=== PATIENT | female | born 1980 | race Caucasian/White ===

== ENCOUNTER 2020-03-04 16:12 | Emergency (ER) | payer OTHER, BC, SELFPAY ==
[2020-03-04 16:31] VITALS: BP 134/101; PULSE 99; RESP 18; TEMP 37.4; O2SAT 97
--- NOTE | 2020-03-04 16:44 | ED.BACK ---
HPI - Back Pain/Injury General Chief Complaint: Back Pain/Injury Stated Complaint: lower back pain Time Seen by Provider: 03/04/20 16:32 Source: patient and RN notes reviewed Mode of arrival: ambulatory Limitations: no limitations History of Present Illness HPI Narrative: Patient presents today complaining of right lower back pain. She injured it while working at [employer] this afternoon. She was pulling a pallet chirag out from underneath a pallet and felt a sudden shooting pain in her back. Denies radiation of the pain. Denies any numbness or tingling in the extremities. Denies any loss of bowel or bladder control. Currently rates her pain 8/10 and tried ice and ibuprofen without relief. MD elicited complaint: back pain Related Data Home Medications Medication Instructions Recorded Confirmed No Home Medications 03/04/20 03/04/20 Allergies Allergy/AdvReac Type Severity Reaction Status Date / Time No Known Allergies Allergy Unknown Verified 05/29/16 12:12 Review of Systems Review of Systems: Narrative: CONSTITUTIONAL: Denies body aches, fever, chills, or sweats. EYES: Denies visual changes, redness, or discharge. ENT: Denies rhinorrhea, congestion, sore throat, or otalgia. CARDIOVASCULAR: Denies chest pain, palpitations, or edema. RESPIRATORY: Denies cough or dyspnea. GASTROINTESTINAL: Denies abdominal pain, nausea, vomiting, or diarrhea. GENITOURINARY: Denies dysuria or hematuria. SKIN: Denies rash, itching, or wounds. MUSCULOSKELETAL: Denies joint pain, or myalgia. + Low back pain NEUROLOGIC: Denies headache, numbness, tingling, or weakness. PSYCH: Denies depression or anxiety. PMFSH Social History Social History Gender identity (if verbalized by the patient): Female Comments At time of signature, I have reviewed and agree with nursing past medical, surgical, social and family history unless otherwise noted. Please see nursing chart for further information. There is no relevant family history pertinent to the presenting complaint Exam Narrative: Exam Narrative: GENERAL: Well-appearing, well-nourished, and in no acute distress.+ Mild pain distress. HEAD: Normocephalic, atraumatic. EYES: EOMI. No redness or drainage. Conjunctivae normal. ENT: Mucous membranes pink and moist. NECK: Normal AROM. Supple. No lymphadenopathy. CHEST: No respiratory distress. MUSCULOSKELETAL: No bony tenderness of the thoracic or lumbar spine. Right lower lumbar paraspinal muscle tenderness. No SI joint tenderness bilaterally. Distal sensation and saddle sensation intact. Capillary refill normal. Posterior tibial pulses normal. Foot push and pulls equal and strong. EXTREMITIES: Normal range of motion. No edema. SKIN: Warm, dry, no rash. Capillary refill normal. Normal skin turgor. NEURO: No focal deficits. Alert and oriented x3. Gait steady. PSYCH: Normal affect. No signs of depression or anxiety. Course Vital Signs Vital signs: Vital Signs Temperature 99.3 F 03/04/20 16:31 Pulse Rate 99 03/04/20 16:31 Respiratory Rate 18 03/04/20 16:31 Blood Pressure 134/101 H 03/04/20 16:31 Pulse Oximetry 97 03/04/20 16:31 Temperature 99.3 F 03/04/20 16:31 Pulse Rate 99 03/04/20 16:31 Respiratory Rate 18 03/04/20 16:31 Blood Pressure 134/101 H 03/04/20 16:31 Pulse Oximetry 97 03/04/20 16:31 Reviewed. Pt has been instructed to follow up with her PCP regarding her elevated blood pressure today. MDM - Back Pain/Injury Differential Diagnosis Differential diagnosis: Likely lumbar radiculopathy, sciatica, strain of lumbar region and other (Bulging disc) Critical Care Time Critical Care Time Critical Care Time: No Discharge Plan Discharge Clinical Impression: Strain of lumbar region Qualifiers: Encounter type: initial encounter Qualified Code(s): S39.012A - Strain of muscle, fascia and tendon of lower back, initial encounter Patient Disposition: Home, Self-Care Condition: Sta
== END 2020-03-04 16:50 | disposition home or self-care (01) ==
PROVIDERS: Emergency Provider Nurse Practitioner
DX: S39.012A Strain of muscle, fascia and tendon of lower back, initial encounter (principal); X50.0XXA Overexertion from strenuous movement or load, initial encounter; Y99.0 Civilian activity done for income or pay
CPT/HCPCS: 99213; G0463

== ENCOUNTER 2021-07-15 07:39 | Emergency (ER) | payer BC, SELFPAY ==
[2021-07-15 07:45] VITALS: BP 114/92; PULSE 100; RESP 16; TEMP 36.4; O2SAT 98
--- NOTE | 2021-07-15 09:17 | ED.GENADULT ---
HPI - General Adult General Chief complaint: Back Pain/Injury Stated complaint: Low Back Pain Time Seen by Provider: 07/15/21 09:06 Source: RN notes reviewed Mode of arrival: ambulatory Limitations: other (patient mood) History of Present Illness HPI narrative: Patient is a 40-year-old female presented with chief complaint of low back pain that began when she bent over to put on her underwear. Patient denies and or saddle paresthesias or loss of bowel or bladder function. Patient reported to nurse radiculopathy. Related Data Home Medications Medication Instructions Recorded Confirmed No Home Medications 03/04/20 03/04/20 Allergies Allergy/AdvReac Type Severity Reaction Status Date / Time No Known Allergies Allergy Unknown Verified 07/15/21 07:58 Review of Systems Review of Systems: CONSTITUTIONAL: Denies fever, chills, or sweats. EYES: Denies visual changes, redness, or discharge. ENT: Denies rhinorrhea, congestion, sore throat, or otalgia. CARDIOVASCULAR: Denies chest pain, palpitations, or edema. RESPIRATORY: Denies cough or dyspnea. GASTROINTESTINAL: Denies abdominal pain, nausea, vomiting, or diarrhea. GENITOURINARY: Denies dysuria or hematuria. SKIN: Denies rash or itching. MUSCULOSKELETAL: Reports back pain, denies joint pain, or myalgia. NEUROLOGIC: Denies headache, numbness, dizziness, or weakness. PSYCHIATRIC: Denies anxiety or depression. PMFSH Social History Social History Gender identity (if verbalized by the patient): Female Exam Narrative: GENERAL: Well-appearing, well-nourished. Patient tearful and yelling at me upon entrance to the room. HEAD: Normocephalic, atraumatic. EYES: PERRLA and EOMI. CHEST:No respiratory distress. No tachypnea. Speaking without difficulty. NEURO: No focal deficits. Alert and oriented x3. Patient ambulates with limping gait. PSYCH: Angry in temperament, yelling. Course Vital Signs Vital signs: Vital Signs Temperature 97.5 F L 07/15/21 07:45 Pulse Rate 100 07/15/21 07:45 Respiratory Rate 16 07/15/21 07:45 Blood Pressure 114/92 H 07/15/21 07:45 Pulse Oximetry 98 07/15/21 07:45 Temperature 97.5 F L 07/15/21 07:45 Pulse Rate 100 07/15/21 07:45 Respiratory Rate 16 07/15/21 07:45 Blood Pressure 114/92 H 07/15/21 07:45 Pulse Oximetry 98 07/15/21 07:45 Medical Decision Making MDM Narrative Medical decision making narrative: Was unable to perform a physical evaluation of patient's back or further neurological exam. Unable to perform any measures to further evaluate her complaint. I went into the room to evaluate patient and apologized for her wait time as my shift is started but she has been waiting for over an hour. I told her that Dr Diaz had been working alone until I got here. The patient began yelling at me that she was leaving and was going to be seen somewhere else. I reiterated the aforementioned and told her that I was the provider taking care of her and could perform exam, order imaging, medications or whatever may be needed to help make her more comfortable. The patient then proceeded to continue yelling at me stating they should've told her about the wait time beforehand and she no longer wants to be seen. She snatched the curtain closed in front of me and told me to get out and let her get dressed and she was leaving. Vital Signs Vital Signs: Vital Signs Temperature 97.5 F L 07/15/21 07:45 Pulse Rate 100 07/15/21 07:45 Respiratory Rate 16 07/15/21 07:45 Blood Pressure 114/92 H 07/15/21 07:45 Pulse Oximetry 98 07/15/21 07:45 Temperature 97.5 F L 07/15/21 07:45 Pulse Rate 100 07/15/21 07:45 Respiratory Rate 16 07/15/21 07:45 Blood Pressure 114/92 H 07/15/21 07:45 Pulse Oximetry 98 07/15/21 07:45 Discharge Plan Discharge Clinical Impression: Lumbar back pain Patient Disposition: Elopement After Seen by Prov Condition: Guarded Prognosis Prescriptions: No Action No Home
--- NOTE | 2021-07-15 09:18 | PC.NURSE ---
Patient was waiting to be seen by provider and was in room. Patient was triaged and waiting in room. Provider arrived and went to see patient, and then opted to walk out before receiving treatment from the provider. Nothing further to report.
== END 2021-07-15 09:20 | disposition left against medical advice (07) ==
PROVIDERS: Emergency Provider Emergency Medicine
DX: M54.50 Low back pain, unspecified (principal)
CPT/HCPCS: 99281

== ENCOUNTER 2021-07-15 09:40 | Emergency (ER) | payer BC, SELFPAY ==
[2021-07-15 09:49] VITALS: BP 132/95; PULSE 95; RESP 16; TEMP 37.4; O2SAT 99
--- NOTE | 2021-07-15 10:07 | ED.BACK ---
HPI - Back Pain/Injury General Chief Complaint: Back Pain/Injury Stated Complaint: lower back pain Time Seen by Provider: 07/15/21 10:25 Source: patient and RN notes reviewed Mode of arrival: ambulatory Limitations: no limitations History of Present Illness HPI Narrative: 40-year-old female presents with concern for right low back pain that radiates to the right buttock and down the right leg. She reports on Wednesday she was bending over to get dressed when she felt a sudden pain in her back. Reports since then she has been using ibuprofen with no relief. She reports position changes make the pain worse. Reports difficulty finding a position of comfort. She denies loss of bowel or bladder function, perianal anesthesia, fever, abdominal pain, mid spinal tenderness. She denies injury or trauma. MD elicited complaint: back pain Related Data Allergies Allergy/AdvReac Type Severity Reaction Status Date / Time No Known Allergies Allergy Unknown Verified 07/15/21 10:27 Review of Systems Review of Systems: CONSTITUTIONAL: Denies malaise, chills, sweats, or fever. CARDIOVASCULAR: Denies chest pain, palpitations, or edema. RESPIRATORY: Denies cough or dyspnea. GASTROINTESTINAL: Denies abdominal pain, nausea, vomiting, diarrhea, bloody, or mucous stools. GENITOURINARY: Denies dysuria or hematuria. SKIN: Denies rash or itching. MUSCULOSKELETAL: Reports right lobe back pain. Denies myalgia. NEUROLOGIC: Denies numbness, weakness, or headache. All systems reviewed & are unremarkable except as noted in HPI and below PMFSH Social History Social History Gender identity (if verbalized by the patient): Female Comments At time of signature, agree with nursing past medical, surgical, social and family history. There is no relevant family history pertinent to the presenting complaint Exam Narrative: GENERAL: Well-appearing, well-nourished, and in no acute distress. HEAD: Normocephalic, atraumatic. EYES: PERRLA and EOMI. NECK: Supple. No lymphadenopathy. CHEST: Clear to auscultation. No respiratory distress. HEART: Regular rate and rhythm. Distal pulses palpable and equal, cap refill <3 seconds MUSCULOSKELETAL: Limited range of motion in the right leg due to pain, otherwise normal range of motion and strength in other extremities; 5/5 strength with hip flexion and extension, dorsiflexion and extension, knee flexion and extension, plantar flexion and extension. Normal sensation in dermatomal distributions with sensitivity to light touch and pain. No midline back tenderness to palpation. No paraspinal tenderness. Transfers from lying to sitting to standing. SKIN: Warm, dry, no rash. No ecchymosis, erythema, open wounds to back. NEURO: No focal deficits. Alert and oriented x3. PSYCH: Normal mood and affect Course Course Emergency Course: Patient is aware of diagnosis, understands and agrees to treatment plan. Anticipatory guidance given. Patient agrees to follow-up as directed and is aware of reasons to seek care at the emergency department. Portions of this record may have been created with voice recognition software Vital Signs Vital signs: Vital Signs Temperature 99.4 F 07/15/21 09:49 Pulse Rate 95 07/15/21 09:49 Respiratory Rate 16 07/15/21 09:49 Blood Pressure 132/95 H 07/15/21 09:49 Pulse Oximetry 99 07/15/21 09:49 Temperature 99.4 F 07/15/21 09:49 Pulse Rate 95 07/15/21 09:49 Respiratory Rate 16 07/15/21 09:49 Blood Pressure 132/95 H 07/15/21 09:49 Pulse Oximetry 99 07/15/21 09:49 Reviewed. MDM - Back Pain/Injury MDM Narrative Medical decision making narrative: No risk factors or findings concerning for epidural abscess, diskitis, vertebral osteomyelitis, cord compression, cauda equina, vertebral fracture or bone malignancy, AAA, or pyelonephritis. Patient instructed to consider further imaging and workup through their primary care physician as an outpatient if symptoms persist. Differentia
[2021-07-15] MEDS: KETOROLAC (*BKC) 60 MG/2 ML VIAL IM (10:50)
== END 2021-07-15 10:55 | disposition home or self-care (01) ==
PROVIDERS: Emergency Provider Nurse Practitioner
DX: M54.50 Low back pain, unspecified (principal)
CPT/HCPCS: 96372; 99213; G0463; J1885

== ENCOUNTER → 2022-09-23 07:36 | Outpatient (CLI) | payer BC, SELFPAY ==
--- NOTE | ~2022-09-23 | US_ITS ---
Limited Abdominal Sonogram: Real-time sonographic imaging of the right upper quadrant was performed. Clinical History: Right upper quadrant pain Findings: The liver appears mildly echogenic, with no evidence of mass lesion or bile duct dilatatio n. Main portal vein demonstrates normal direction of flow. The gallbladder is well distended, and basilio ears normal with no evidence of gallstone or wall thickening. The common bile duct measures 3 mm. Th e visualized pancreas, aorta, and IVC are unremarkable. Right kidney measures 10.4 cm in length, with out evidence for hydronephrosis. Impression: Probable diffuse fatty infiltration of the liver. Reviewed, dictated and finalized at location M. DESIGNER Impression: Probable diffuse fatty infiltration of the liver.
== END ==
PROVIDERS: PCP Registered Nurse; Visit Provider Registered Nurse
DX: R10.11 Right upper quadrant pain (principal); K76.0 Fatty (change of) liver, not elsewhere classified
CPT/HCPCS: 76705

== ENCOUNTER 2022-10-09 07:24 | Outpatient (CLI) | payer BC, SELFPAY ==
--- NOTE | ~2022-10-09 | NM_ITS ---
EXAMINATION: NM hepatobiliary wo pharm DATE: 10/09/2022 10:38 FRINGE KNOTTER INDICATION: Right upper quadrant pain COMPARISON: None. TECHNIQUE: 5.1 mCi Tc-99m mebrofenin (Choletec) was administered intravenously. Scintigraphic images of the abdomen were obtained for one hour. At the 1 hour time point, the patient drank 8 oz Ensure, and imaging was continued for 60 minutes. Gallbladder ejection fraction was calculated by the technol ogist. FINDINGS: There is normal clearance of radiotracer from the blood pool. There is homogeneous tracer u ptake by the liver. Activity progresses to the bowel and gallbladder. The gallbladder ejection fract ion is 33%. Note that with this technique, normal GBEF >= 33%. IMPRESSION: 1. Normal hepatobiliary scan. Reviewed, dictated and finalized at location B. GE KNOTTER
== END 2022-10-09 07:25 | disposition home or self-care (01) ==
PROVIDERS: PCP Registered Nurse; Visit Provider Registered Nurse
DX: R10.11 Right upper quadrant pain (principal)
CPT/HCPCS: 78226; A9537

== ENCOUNTER 2023-09-20 15:16 | Emergency (ER) | payer BC, SELFPAY ==
[2023-09-20 15:38] VITALS: BP 130/81; PULSE 83; RESP 16; TEMP 36.9; O2SAT 98
--- NOTE | 2023-09-20 15:55 | ED.URI ---
HPI - URI/Sore Throat General Chief Complaint: Upper Respiratory Infection Stated Complaint: left side of face hurts,sore throat Time Seen by Provider: 09/20/23 15:55 Source: patient Mode of arrival: ambulatory Limitations: no limitations History of Present Illness HPI Narrative: 43-year-old female presents with complaint of , sinus pressure, sore throat, left ear pain, fatigue for 2-3 days. Afebrile. States when she woke up this morning had felt very full. Not taking any [id number] medications to treat her symptoms. All systems reviewed and negative except as noted above. Related Data Allergies Allergy/AdvReac Type Severity Reaction Status Date / Time No Known Allergies Allergy Unknown Verified 09/20/23 15:42 Review of Systems Review of Systems: CONSTITUTIONAL: Denies fever, chills, or sweats. EYES: Denies visual changes, redness, or discharge. ENT: Reports rhinorrhea, congestion, sore throat, left ear pain. CARDIOVASCULAR: Denies chest pain, palpitations, or edema. RESPIRATORY: Denies cough or dyspnea. GASTROINTESTINAL: Denies abdominal pain, nausea, vomiting, or diarrhea. GENITOURINARY: Denies dysuria or hematuria. SKIN: Denies rash or itching. MUSCULOSKELETAL: Denies back pain, joint pain, or myalgia. NEUROLOGIC: Denies headache, numbness, or weakness. PSYCHIATRIC: Denies anxiety or depression. All other systems reviewed are negative, except as documented in HPI. PMFSH Social History Social History Gender identity (if verbalized by the patient): Female Comments At time of signature, agree with nursing past medical, surgical, social and family history. There is no relevant family history pertinent to the presenting complaint. Exam Narrative: GENERAL: This is a well-nourished, well-developed patient, in no apparent distress. HEAD: normocephalic, atraumatic. EYES: PERRL. Sclera clear/white. Vision is grossly intact. EARS: External ears normal, auditory canals clear and without drainage, Fluid bilateral TMs, dull light reflex, mild erythema bilaterally without perforation.. Hearing grossly intact. NOSE: External nose normal with Mild congestion, erythema to bilateral nares. THROAT: Mucous membranes moist, posterior pharynx clear. NECK: Neck supple, non-tender without lymphadenopathy, masses or thyromegaly. CARDIOVASCULAR: Regular rate and rhythm without murmurs, gallops, or rubs. RESPIRATORY: Clear to auscultation. Breath sounds equal bilaterally. No wheezes, rales, or rhonchi. SKIN: warm, Dry, intact with no suspicious lesions or rash, good texture and turgor. NEURO: awake, alert, and oriented to person, place and time. There were no obvious focal neurologic abnormalities. EXTREMITIES: No joint tenderness, effusion, or edema noted. Course Course Level of Care: Express Care Visit Vital Signs Vital signs: Vital Signs Temperature 36.9 C 09/20/23 15:38 Pulse Rate 83 09/20/23 15:38 Respiratory Rate 16 09/20/23 15:38 Blood Pressure 130/81 09/20/23 15:38 Pulse Oximetry 98 09/20/23 15:38 Oxygen Delivery Room Air 09/20/23 15:38 Temperature 36.9 C 09/20/23 15:38 Pulse Rate 83 09/20/23 15:38 Respiratory Rate 16 09/20/23 15:38 Blood Pressure 130/81 09/20/23 15:38 Pulse Oximetry 98 09/20/23 15:38 Oxygen Delivery Room Air 09/20/23 15:38 Reviewed MDM - URI/Sore Throat MDM Narrative Medical decision making narrative: Patient is aware of diagnosis, understands and agrees to treatment plan. Anticipatory guidance given. Patient agrees to follow-up as directed and is aware of reasons to seek care at the emergency department. Portions of this record may have been created with voice recognition software Differential Diagnosis Differential diagnosis: Likely otitis media and sinusitis Lab Data Labs: Strep Screen Presumptive Negative *(Reference Range: Negative)* Discharge Joaquin
== END 2023-09-20 16:05 | disposition home or self-care (01) ==
PROVIDERS: Emergency Provider Nurse Practitioner Family; PCP Registered Nurse
DX: H65.03 Acute serous otitis media, bilateral (principal); J01.90 Acute sinusitis, unspecified
CPT/HCPCS: 87081; 87880; 99213; G0463

== ENCOUNTER 2024-07-13 16:22 | Emergency (ER) | payer BC, SELFPAY ==
--- NOTE | ~2024-07-13 | CT_ITS ---
CT abdomen pelvis w con Ordering provider: Prasanth Medrano MD History: 43 years Female with . RIGHT UPPER QUADRANT PAIN . Comparison: None. Technique: CT abdomen and pelvis with IV and without oral contrast. Automated exposure control and it erative reconstruction technique were employed. The dose-length product was 481.39 mGy-cm. 100 mL Omn ipaque 350 was given IV. Findings: VISUALIZED LOWER CHEST: Dependent atelectatic changes. UPPER ABDOMINAL ORGANS: Liver: Mild hepatomegaly. Gallbladder: Contracted. Spleen: Normal. Stomach/duodenum: Slightly thickened wall of the second and 3rd parts of the duodenum which may indic ate duodenitis.. Pancreas: Normal. Adrenals: Normal. Kidneys: Tiny hyperdense areas are seen in the left kidney which may be tiny stones or early contrast excretion. Follow-up advised. Tiny calcification focus is also seen in the right kidney. PELVIC ORGANS: The bladder is normal. Uterus: Normal. Tiny right ovarian cyst. BOWEL AND MESENTERY: Colon: No evidence of diverticulitis. Fecal material is loaded in the right side of the colon suggest taylor of constipation. Normal appendix. Small Bowel: Normal. No obstruction. Peritoneum/mesentery: No free air or free fluid. No mesenteric lymphadenopathy. RETROPERITONEUM: Normal aorta. No retroperitoneal lymphadenopathy. MUSCULOSKELETAL: Superficial soft tissues: The superficial soft tissues are normal. Bones: Age appropriate degenerative changes of the spine. IMPRESSION: 1. No evidence of appendicitis, diverticulitis or intestinal obstruction. 2. Possible duodenitis. 3. Constipation. 4. Mild hepatomegaly. Reviewed, dictated and finalized at location A. [facility] [employer]
[2024-07-13 16:23] VITALS: BP 151/86; PULSE 91; RESP 16; TEMP 36.6; O2SAT 98
--- NOTE | 2024-07-13 16:31 | ECG_ITS ---
Test Date: 2024-07-13 16:37:57 Measurements Intervals [place] Rate: 80 P: 39 ND: 145 QRS: 4 QRSD: 93 T: 47 QT: 383 QTc: 442 Interpretive Statements SINUS RHYTHM DELAYED PRECORDIAL R/S TRANSITION CONSIDER INFERIOR INFARCT, AGE INDETERMINATE BORDERLINE T WAVE ABNORMALITY- ANTERIOR LEADS ABNORMAL ECG No previous ECG available for comparison Electronically Signed On 07-13-2024 17:49:50 FRAME TENDER by Bennett Liu D.O.
[2024-07-13 16:47] LABS: Basophils Absolute Auto 0.1 K/mm3 (0.0-0.1); Basophils Percent Auto 0.5 % (0.2-1.2); Eosinophils Absolute Auto 0.4 K/mm3 (0-0.3); Eosinophils Percent Auto 3.1 % (0-4.4); Hemoglobin 13.7 g/dL (12.0-15.0); Immature Granulocyte Absolute 0.06 K/mm3 (0.00-0.031); Immature Granulocyte Percent A 0.4 % (0-0.5); Lymphocytes Absolute Auto 2.16 K/mm3 (0.9-3.2); Lymphocytes Percent Auto 15.7 % (18.3-44.2); Mean Corpuscular HGB Conc 33.4 g/dl (32-36); Mean Corpuscular Hemoglobin 30.5 pg (26-34); Mean Corpuscular Volume 91.3 fl (80-100); Mean Platelet Volume 9.6 fl (7.4-10.4); Monocytes Absolute Auto 0.8 K/mm3 (0.1-0.6); Neutrophils Absolute Auto 10.2 K/mm3 (1.3-6.7); Neutrophils Percent Auto 74.3 % (45.5-73.1); Platelet Count Result 345 k/mm3 (150-375); Red Blood Count 4.49 M/mm3 (4.2-5.4); Red Cell Distribution Width 13.9 % (11.5-14.5); White Blood Count 13.8 K/mm3 (4.5-10.0)
--- NOTE | 2024-07-13 16:50 | ED.ABDPAIN ---
HPI - Abdominal Pain General Chief Complaint: Abdominal Pain Stated Complaint: RUQ ABD PAIN Time Seen by Provider: 07/13/24 16:50 Source: patient and family Mode of arrival: ambulatory Limitations: no limitations History of Present Illness HPI narrative: 43 YEARS OLD WHITE FEMALE CAME TO THE ED BY PRIVATE CAR COMPLAINING OF RIGHT UPPER QUADRANT PAIN AND EPIGASTRIC PAIN DULL ACHING, RADIATING TO THE BACK, STARTED YESTERDAY MORNING. SHE DENIES AGGRAVATING OR RELIEVING FACTORS PATIENT REPORTS SOME NAUSEA, POSSIBLE CHILLS, VOMITED 3 TIMES YESTERDAY, NOT TODAY DIARRHEA 3 TIMES TODAY. NO HISTORY OF ABDOMINAL SURGERY DOES NOT TAKE MEDICINE AT HOME SHE SMOKES CIGARETTES, DENIES ALCOHOL OR DRUG USE. Related Data Home Medications Medication Instructions Recorded Confirmed tramadol 50 mg tablet 50 mg PO Q6H PRN 06/27/24 06/27/24 Allergies Allergy/AdvReac Type Severity Reaction Status Date / Time No Known Allergies Allergy Unknown Verified 06/27/24 07:12 Review of Systems Review of Systems: All systems reviewed & are unremarkable except as noted in HPI and below PMFSH Family History Family History Father Hypertension Sibling Hypertension Lupus DVT (deep vein thrombosis) in Pulmonary embolism Grandparent Heart disease Cancer Social History Social History Smoking status: Current every day smoker Tobacco type: cigarettes Alcohol intake: never Substance use: never Do You Feel Safe in your Home?: Yes Lack of Transportation: No Lack of Food: Never True Current Housing: I Have Housing Concerned About Future Housing: No Difficulty Paying Gas/Electric Bills: No Difficulty Paying for Meds: No Currently Unemployed: No Education: High School Diploma/GED Difficulty w/ Childcare or Family Care: No Gender identity (if verbalized by the patient): Female Exam Narrative: GENERAL APPEARANCE: WELL-DEVELOPED, WELL-NOURISHED SKIN: NORMAL COLOR HEAD: NORMOCEPHALIC, NONTRAUMATIC EYES: CLEAR CONJUNCTIVA ENT: OROPHARYNX NORMAL, EARS NORMAL, NOSE NORMAL NECK: SUPPLE, NONTENDER CHEST AND RESPIRATORY: AIRWAY PATENT, NO RESPIRATORY DISTRESS, NO ACCESSORY MUSCLE USE HEART: REGULAR RATE/RHYTHM ABDOMEN: SOFT, EPIGASTRIC TENDERNESS , NO ORGANOMEGALY, QUIET BOWEL SOUNDS VASCULAR: NORMAL PERIPHERAL PULSES, NORMAL CAPILLARY REFILL. 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, NO GROSS MOTOR DEFICIT Course Vital Signs Vital signs: Vital Signs Temperature 36.6 C 07/13/24 16:23 Pulse Rate 91 07/13/24 16:23 Respiratory Rate 16 07/13/24 16:23 Blood Pressure 151/86 H 07/13/24 16:23 Pulse Oximetry 98 07/13/24 16:23 Oxygen Delivery Room Air 07/13/24 16:23 Temperature 36.7 C 07/13/24 18:40 Pulse Rate 85 07/13/24 18:40 Respiratory Rate 16 07/13/24 18:40 Blood Pressure 148/82 H 07/13/24 18:40 Pulse Oximetry 99 07/13/24 18:40 Oxygen Delivery Room Air 07/13/24 16:23 MDM - Abdominal Pain MDM Narrative Medical decision making narrative: PATIENT CAME TO THE ED WITH EPIGASTRIC RIGHT UPPER QUADRANT PAIN STARTED YESTERDAY MORNING, ASSOCIATED WITH NAUSEA, VOMITING AND DIARRHEA VITAL SIGNS ARE STABLE PHYSICAL EXAMINATION SHOWING MILD TENDERNESS EPIGASTRIC AREA DIFFERENTIAL DIAGNOSIS INCLUDE CHOLECYSTITIS, PANCREATITIS, COLITIS, DIVERTICULITIS, STRESS LIKE SYMPTOMS, VIRAL GASTROENTERITIS, URINARY TRACT INFECTION BLOOD WORKUP TODAY INCLUDES CBC, CMP, LIPASE SHOWED WBC OF 13.8 OTHERWISE INSIGNIFICANT FINDING URINALYSIS SHOWED NO EVIDENCE OF INFECTION CT ABDOMEN AND PELVIS WITH IV CONTRAST SHOWED POSSIBLE DUODENITIS, CONSTIPATION OTHERWISE INSIGNIFICANT FINDINGS. DISCHARGED ON PROTONIX AND MIRALAX. THE PT WAS DISCHARGED TO HOME.THE PT,S CONDITION UPON DISCHARGE WAS FAIR,EDUCATION WAS PROVIDED TO THE PT IN REFERENCE TO THE FINAL IMPRESSION,DISCHARGE STUDY RESULTS,TREATMENT,PROGNOSIS AND NEED FOR FOLLOW UP . Differential Diagnosis Differential diagnosis: Likely other ( ABOVE) Lab Data 07/13/24 16:37 07/13/24 16:37 Labs: Lab Results 07/13/24 07/13/24 07/13/24 Range/Units 16:37 17:34 17:36 WBC 13.8 H (4.5-10.0) K/mm3 RBC 4.49 (4.2-5.4) M/mm3 Hgb 13.7 (12.0-15.0) g/dL Hct 41.0 (37.0-47.0) % MCV 91.3 (80-100) fl MCH 30.5 (26-34) pg MCHC 33.4 (32-36) g/dl RDW 13.9 (11.5-14.5) % Plt Count 345 (150-375) k/mm3 MPV 9.6 (7.4-10.4) fl Immature Gran % (Auto) 0.4 (0-0.5) % Neut % (Auto) 74.3 H (45.5-73.1) % Lymph % (Auto) 15.7 L (18.3-44.2) % [place] % (Auto) 6.0 (2.6-8.5) % Eos % (Auto) 3.1 (0-4.4) % Baso % (Auto) 0.5 (0.2-1.2) % Lymph # (Auto) 2.16 (0.9-3.2) K/mm3 [place] # (Auto) 0.8 H (0.1-0.6) K/mm3 Eos # (Auto) 0.4 H (0-0.3) K/mm3 Baso # (Auto) 0.1 (0.0-0.1) K/mm3 Abs Immat Gran (auto) 0.06 H (0.00-0.031) K/mm3 Absolute Neuts (auto) 10.2 H (1.3-6.7) K/mm3 Absolute Nucleated RBC 0.000 (0.0-0.012) K/mm3 Nucleated RBC % 0.0 (0.0-0.2) % Sodium 139 (137-145) mmol/L Potassium 3.9 (3.4-5.0) mmol/L Chloride 106 (98-107) mmol/L Carbon Dioxide 25 (22-30) mmol/L Anion Gap 8 (4-12) mmol/L BUN 13 (7-17) mg/dL Creatinine 0.90 (0.7-1.0) mg/dL Estim Creat Clear Calc 67 ml/min Estimated GFR > 60 (59 - ) Glucose 121 H (65-110) mg/dL Calcium 8.8 (8.4-10.2) mg/dL Total Bilirubin 0.3 (0.2-1.3) mg/dL AST 24 (14-36) U/L ALT 25 (6-35) U/L Alkaline Phosphatase 82 (38-126) U/L Total Protein 8.0 (6.3-8.2) g/dL Albumin 4.3 (3.5-5.1) g/dL Lipase 229 (23-300) U/L Urine Color Yellow (Yellow) Urine Appearance Clear (Clear) Urine pH 7.0 (5.0-9.0) Ur Specific [place] 1.017 (1.001-1.035) Urine Protein Negative (Negative) mg/dL Urine Glucose (UA) Negative (Negative) mg/dL Urine Ketones Negative (Negative) mg/dL Ur Blood (Man) Trace (Negative) Urine Nitrate Negative (Negative) Urine Bilirubin Negative (Negative) Urine Urobilinogen 1.0 (<2.0) mg/dL Leukocyte Esterase Rfl Negative (Negative) CINDY/UL Urine RBC 0-2 (0-2) /hpf Urine WBC 0-5 (0-3) /hpf Ur Squamous Epith Cells None seen (Few) /hpf Urine Bacteria None seen /hpf Urine Casts 0-2 POC Urine HCG, Qual Negative (Negative) Influenza A (RT-PCR) Negative (Negative) Influenza B (RT-PCR) Negative (Negative) RSV (RT-PCR) Negative (Negative) SARS-CoV-2 RNA (RT-PCR) Negative (Negative) Imaging Data Radiologist's impression: ITS Impressions Abdomen/Pelvis CT 07/13/24 18:30 IMPRESSION: 1. No evidence of appendicitis, diverticulitis or intestinal obstruction. 2. Possible duodenitis. 3. Constipation. 4. Mild hepatomegaly. Critical Care Time Critical Care Time Critical Care Time: No Discharge Plan Discharge Clinical Impression: Duodenitis, Constipation Patient Disposition: Home, Self-Care Condition: Stable Additional Instructions: RETURN IF SYMPTOMS ARE WORSENING , CALL YOUR FAMILY PHYSICIAN FOR APPOINTMENT, TAKE TYLENOL NEEDED FOR ACHES AND PAIN, CONTINUE HOME MEDICATIONS. Prescriptions: New pantoprazole [Protonix] 40 mg tablet,delayed release (DR/EC) 40 mg PO QAM 30 Days Qty: 30 0RF polyethylene glycol 3350 [Miralax] 17 gram powder in packet 17 g PO QID Qty: 30 0RF No Action tramadol 50 mg tablet 50 mg PO Q6H PRN Follow-up/Referrals: Tamara,MORRIS Clark [Primary Care Provider] -
[2024-07-13 16:59] LABS: Alanine Aminotransferase 25 U/L (6-35); Albumin Level 4.3 g/dL (3.5-5.1); Alkaline Phosphatase 82 U/L (38-126); Anion Gap 8 mmol/L (4-12); Aspartate Amino Transferase 24 U/L (14-36); Bilirubin,Total 0.3 mg/dL (0.2-1.3); Blood Urea Nitrogen 13 mg/dL (7-17); Calcium 8.8 mg/dL (8.4-10.2); Carbon Dioxide 25 mmol/L (22-30); Chloride 106 mmol/L (98-107); Estimated CRCL calculation 67 ml/min; Estimated Glomerular Filt Rate > 60; Glucose 121 mg/dL (65-110); Lipase 229 U/L (23-300); Potassium 3.9 mmol/L (3.4-5.0); Sodium 139 mmol/L (137-145)
[2024-07-13] MEDS: SODIUM CHLORIDE 0.9% IV 1,000 ML 999 ML IV CONT (17:32)
[2024-07-13 17:35] VITALS: BP 159/84; PULSE 69; RESP 16; O2SAT 98
[2024-07-13 17:35] LABS: BEDSIDEPREGUCG Negative (Negative)
--- NOTE | 2024-07-13 17:40 | PC.NURSE ---
CT notified that test is negative and pt. is ready for scan.
[2024-07-13 17:50] LABS: Add Urine Microscopic? YES; Appearance Urine Clear (Clear); Bacteria Urine None Seen /hpf; Bilirubin Urine Negative (Negative); Blood Urine Trace (Negative); Color Urine Yellow (Yellow); Glucose Urine UA Negative (Negative); Ketones Urine Negative (Negative); Leukocyte Esterase Ur Negative LEU/UL (Negative); Nitrate Urine Negative (Negative); Non Pathogenic Casts 0-2; Protein Urine Negative (Negative); RBC Urine 0-2 /hpf (0-2); Specific Grav Ur 1.017 (1.001-1.035); Squamous Epithelial Cell Urine None Seen /hpf (Few); WBC Urine 0-5 /hpf (0-3)
[2024-07-13 18:21] LABS: Influenza A QL RT-PCR Negative (Negative); Influenza B QL RT-PCR Negative (Negative); RSV RNA, RT-PCR Negative (Negative); SARS-CoV-2 RNA PCR Negative (Negative)
[2024-07-13 18:40] VITALS: BP 148/82; PULSE 85; RESP 16; TEMP 36.7; O2SAT 99
[2024-07-13 19:07] VITALS: BP 145/72; PULSE 90; RESP 16; O2SAT 99
== END 2024-07-13 19:09 | disposition home or self-care (01) ==
PROVIDERS: Emergency Provider Emergency Medicine; PCP Registered Nurse
DX: K29.80 Duodenitis without bleeding (principal); K59.00 Constipation, unspecified; F17.210 Nicotine dependence, cigarettes, uncomplicated; R16.0 Hepatomegaly, not elsewhere classified
CPT/HCPCS: 36415; 74177; 80053; 81001; 81025; 83690; 85025; 87637; 93005; 96360; 99284; J7030; Q9967